=== PATIENT | male | born 1955 ===

== ENCOUNTER 2022-05-08 12:33 | Inpatient (IN) ==
[~2022-05-08 12:33] MED LIST: EPINEPHrine SYR 0.1MG/ML 10 ml SYRINGE ONE
[2022-05-08] MEDS ORDERED: Albuterol 2.5mg/3 ml (0.083%) NEB.SOLN INH ONE ×2 (12:45→14:13)
[2022-05-08] MEDS ORDERED: methylPREDNISolone SOD SUCC 125 mg 2 ML VIAL IV ONE (12:50)
[2022-05-08] MEDS ORDERED: EPINEPHrine SYR 0.1MG/ML 10 ml SYRINGE ONE (13:06)
[2022-05-08 13:08] LABS: Hematocrit 41 % (42-52); Hemoglobin 13.1 g/dL (14.0-18.0); Mean Corpuscular HGB Conc 32 g/dL (31-36); Mean Corpuscular Hemoglobin 30 pg (27-31); Mean Corpuscular Volume 96 fL (80-94); Mean Platelet Volume 6.8 fL (7.4-10.4); Platelet Count 209 10^3/uL (150-450); Red Blood Count 4.34 10^6 /uL (4.18-5.48); Red Cell Distribution Width 13 % (10-15); White Blood Count 7.8 10^3/uL (3.5-10.8)
[2022-05-08 13:18] LABS: INR 1.14 (0.88-1.18)
[2022-05-08] MEDS ORDERED: Iodixanol (CONTRAST) 320 MG/ML 100 ML SDV IV ONE (13:22)
[2022-05-08 13:55] LABS: Albumin 3.2 g/dL (3.2-5.2); Albumin/Globulin Ratio 1.5 (1-3); Calcium 7.8 mg/dL (8.6-10.3); Creatinine, Serum 1.64 mg/dL (0.67-1.17); Globulin 2.1 g/dL (2-4); Magnesium 2.4 mg/dL (1.9-2.7); Phosphorus 9.4 mg/dL (2.5-5.0); Potassium 4.7 mmol/L (3.5-5.0); Total Bilirubin 0.4 mg/dL (0.2-1.0); Total Protein 5.3 g/dL (6.4-8.9); eGFR CKD-EPI 45.8 (>60)
[2022-05-08] MEDS ORDERED: Albuterol/Ipratropium NEB.SOL (2.5/0.5 MG) 3 ML NEB.SOLN INH SCH (14:00)
[2022-05-08] MEDS ORDERED: Norepinephrine 16MCG/ML BAGD5W 4,000 MCG/250 ML BAG IV SCH (14:00)
[2022-05-08] MEDS ORDERED: Propofol 10 mg/ml 100 ML BTL 1,000 MG/100 ML BTL IV SCH (14:00)
[2022-05-08 14:04] LABS: TSH Ultra Thyroid Stim Horm 22.21 mcIU/mL (0.34-5.60)
[2022-05-08] MEDS ORDERED: Propofol 10 mg/ml 100 ML BTL 1,000 MG/100 ML BTL ONE (14:05)
[2022-05-08 14:07] LABS: RBC Morphology Normal (Normal)
[2022-05-08 14:08] LABS: ABS Eosinophils 0.2 10^3/ul (0-0.6); ABS Lymphocytes 3.3 10^3/ul (1.0-4.8); ABS Monocytes 0.5 10^3/ul (0-0.8); ABS Neutrophils 3.8 10^3/ul (1.5-7.7); Eosinophil % 2.1 %; Lymphocyte % 42.1 %; Nucleated Red Blood Cells % 0.1
[2022-05-08] MEDS: Propofol 10 mg/ml 100 ML BTL 1,000 MG/100 ML BTL IV SCH ×3 (14:10→20:17)
[2022-05-08 14:20] LABS: PCO2 Arterial 54 mmHg (35-45); PO2 Arterial 453 mmHg (80-100)
[2022-05-08] MEDS ORDERED: Lorazepam PYXIS KEY PRN ×3 (14:22→15:05)
[2022-05-08] MEDS ORDERED: LORazepam 2 mg VIAL 1 ml IV PUSH ONE ×2 (14:22→15:05)
[2022-05-08] MEDS ORDERED: Lorazepam PYXIS KEY ONE (14:22)
[2022-05-08] MEDS ORDERED: LORazepam 2 mg VIAL 1 ml ONE (14:23)
[2022-05-08] MEDS ORDERED: LORazepam 2 mg VIAL 1 ml IV PUSH STA (14:30)
[2022-05-08] MEDS: methylPREDNISolone SOD SUCC 40 mg/ml 1 ml VIAL IV SCH ×2 (14:45→21:32)
[2022-05-08] MEDS: Chlorhexidine MOUTHWASH 0.12% 15 ML UDC SWISH SPIT SCH ×3 (14:45→21:32)
[2022-05-08] MEDS: Pantoprazole VIAL 40 MG VIAL IV SCH (14:46)
[2022-05-08] MEDS: levETIRAcetam 1000MG IVPREMIX 1,000 MG/100 ML BAG IVPB ONE ×2 (14:49→15:07)
[2022-05-08 14:55] LABS: High Sensitivity Troponin 1 Hr 171 pg/mL (<20)
[2022-05-08] MEDS: Albuterol/Ipratropium NEB.SOL (2.5/0.5 MG) 3 ML NEB.SOLN INH SCH ×3 (14:59→23:06)
[2022-05-08] MEDS: Enoxaparin 40 MG/0.4 ML SYR SUBCUT SCH (15:22)
[2022-05-08 15:48] LABS: Urine Appearance Cloudy; Urine Bilirubin Negative (Negative); Urine Blood 2+ (Negative); Urine Color Straw; Urine Glucose 2+(150 mg/dL) (Negative); Urine Ketones Negative (Negative); Urine Nitrite Negative (Negative); Urine Protein 1+(30 mg/dL) (Negative); Urine Specific Gravity 1.015 (1.002-1.030); Urine Urobilinogen Negative (Negative)
[2022-05-08 15:59] LABS: Urine Bacteria Absent (Absent); Urine Red Blood Cell 2+(6-10/hpf) (Absent); Urine White Blood Cell Trace(0-5/hpf) (Absent)
[2022-05-08 16:06] LABS: Urine Benzodiazepine Screen None Detected (None Detect); Urine Cannabinoids Screen None Detected (None Detect); Urine Opiates Screen None Detected (None Detect)
[2022-05-08] MEDS ORDERED: Sulfur Hexaflouride MICROSPHR 25 MG VIAL ONE (16:34)
[2022-05-08 17:24] LABS: PCO2 Arterial 34 mmHg (35-45); PO2 Arterial 88 mmHg (80-100)
[2022-05-08] MEDS ORDERED: Meperidine 50 mg/ml SYRINGE 1 ml IV PRN (18:47)
[2022-05-08] MEDS ORDERED: NS 0.9% 500 ml BAG 500 ML IV ONE (22:00)
[2022-05-08 23:09] LABS: PCO2 Arterial 24 mmHg (35-45); PO2 Arterial 89 mmHg (80-100)
[2022-05-09 00:41] LABS: Calcium 7.9 mg/dL (8.6-10.3); Creatinine, Serum 1.65 mg/dL (0.67-1.17); Potassium 3.7 mmol/L (3.5-5.0); eGFR CKD-EPI 45.5 (>60)
[2022-05-09] MEDS ORDERED: NS 0.9% 500 ml BAG 500 ML IV ONE ×2 (01:01→15:33)
[2022-05-09] MEDS: Chlorhexidine MOUTHWASH 0.12% 15 ML UDC SWISH SPIT SCH ×6 (01:08→21:12)
[2022-05-09] MEDS: Albuterol/Ipratropium NEB.SOL (2.5/0.5 MG) 3 ML NEB.SOLN INH SCH ×6 (02:58→22:33)
[2022-05-09] MEDS: Propofol 10 mg/ml 100 ML BTL 1,000 MG/100 ML BTL IV SCH ×6 (03:04→22:59)
[2022-05-09 04:17] LABS: ABS Lymphocytes 0.4 10^3/ul (1.0-4.8); ABS Monocytes 0.4 10^3/ul (0-0.8); ABS Neutrophils 12.7 10^3/ul (1.5-7.7); Hematocrit 41 % (42-52); Hemoglobin 13.5 g/dL (14.0-18.0); Mean Corpuscular HGB Conc 33 g/dL (31-36); Mean Corpuscular Hemoglobin 30 pg (27-31); Mean Corpuscular Volume 90 fL (80-94); Mean Platelet Volume 6.7 fL (7.4-10.4); Platelet Count 215 10^3/uL (150-450); Red Blood Count 4.51 10^6 /uL (4.18-5.48); Red Cell Distribution Width 14 % (10-15); White Blood Count 13.5 10^3/uL (3.5-10.8)
[2022-05-09 04:43] LABS: Calcium 7.9 mg/dL (8.6-10.3); Creatinine, Serum 1.68 mg/dL (0.67-1.17); Potassium 3.8 mmol/L (3.5-5.0); eGFR CKD-EPI 44.5 (>60)
[2022-05-09] MEDS: levETIRAcetam 1000MG IVPREMIX 1,000 MG/100 ML BAG IVPB SCH ×2 (05:10→17:56)
[2022-05-09] MEDS: methylPREDNISolone SOD SUCC 40 mg/ml 1 ml VIAL IV SCH ×3 (05:14→21:27)
[2022-05-09 05:47] LABS: PCO2 Arterial 25 mmHg (35-45); PO2 Arterial 75 mmHg (80-100)
[2022-05-09 10:27] LABS: INR 1.09 (0.88-1.18)
[2022-05-09] MEDS ORDERED: Midazolam 50 MG PREMIX IV DRIP 50 ML IV SCH (13:15)
[2022-05-09] MEDS: Enoxaparin 40 MG/0.4 ML SYR SUBCUT SCH ×2 (13:17→14:43)
[2022-05-09] MEDS: Pantoprazole VIAL 40 MG VIAL IV SCH (13:17)
[2022-05-09] MEDS ORDERED: NS 0.9% 1000 ml BAG 1,000 ML IV SCH (15:45)
[2022-05-09 15:48] LABS: Free T4 0.64 ng/dL (0.61-1.12)
[2022-05-09 16:51] LABS: Calcium 7.8 mg/dL (8.6-10.3); Creatinine, Serum 1.6 mg/dL (0.67-1.17); Potassium 3.9 mmol/L (3.5-5.0); eGFR CKD-EPI 47.2 (>60)
[2022-05-09 18:24] LABS: Phosphorus 2.6 mg/dL (2.5-5.0)
[2022-05-09 19:50] LABS: Calcium 7.7 mg/dL (8.6-10.3); Creatinine, Serum 1.6 mg/dL (0.67-1.17); eGFR CKD-EPI 47.2 (>60)
[2022-05-10] MEDS: Chlorhexidine MOUTHWASH 0.12% 15 ML UDC SWISH SPIT SCH ×6 (01:16→22:24)
[2022-05-10] MEDS: Albuterol/Ipratropium NEB.SOL (2.5/0.5 MG) 3 ML NEB.SOLN INH SCH ×3 (02:05→19:05)
[2022-05-10] MEDS: Propofol 10 mg/ml 100 ML BTL 1,000 MG/100 ML BTL IV SCH ×4 (02:49→13:27)
[2022-05-10 04:49] LABS: ABS Lymphocytes 0.3 10^3/ul (1.0-4.8); ABS Monocytes 0.7 10^3/ul (0-0.8); Hematocrit 36 % (42-52); Hemoglobin 11.8 g/dL (14.0-18.0); Lymphocyte % 2.1 %; Mean Corpuscular HGB Conc 33 g/dL (31-36); Mean Corpuscular Hemoglobin 30 pg (27-31); Mean Corpuscular Volume 90 fL (80-94); Mean Platelet Volume 6.8 fL (7.4-10.4); Platelet Count 206 10^3/uL (150-450); Red Cell Distribution Width 14 % (10-15)
[2022-05-10 04:57] LABS: INR 1.1 (0.88-1.18)
[2022-05-10] MEDS: levETIRAcetam 1000MG IVPREMIX 1,000 MG/100 ML BAG IVPB SCH ×2 (05:50→17:11)
[2022-05-10] MEDS: methylPREDNISolone SOD SUCC 40 mg/ml 1 ml VIAL IV SCH ×2 (05:52→13:31)
[2022-05-10 06:15] LABS: PCO2 Arterial 34 mmHg (35-45); PO2 Arterial 91 mmHg (80-100)
[2022-05-10 06:54] LABS: Calcium 7.5 mg/dL (8.6-10.3); Creatinine, Serum 1.67 mg/dL (0.67-1.17); Potassium 4.6 mmol/L (3.5-5.0); eGFR CKD-EPI 44.9 (>60)
[2022-05-10 10:24] LABS: High Sensitivity Troponin 1 Hr 3188 pg/mL (<20)
[2022-05-10] MEDS: Pantoprazole VIAL 40 MG VIAL IV SCH (13:31)
[2022-05-10] MEDS: Enoxaparin 40 MG/0.4 ML SYR SUBCUT SCH (13:31)
[2022-05-10] MEDS ORDERED: methylPREDNISolone SOD SUCC 40 mg/ml 1 ml VIAL IV SCH (14:00)
[2022-05-10] MEDS: Artificial Tear OPHTH.OINT 3.5 GM BOTH EYES SCH ×2 (22:18)
[2022-05-11] MEDS ORDERED: methylPREDNISolone SOD SUCC 40 mg/ml 1 ml VIAL IV SCH (01:00)
[2022-05-11] MEDS: Artificial Tear OPHTH.OINT 3.5 GM BOTH EYES SCH ×6 (01:31→21:15)
[2022-05-11] MEDS: Chlorhexidine MOUTHWASH 0.12% 15 ML UDC SWISH SPIT SCH ×6 (01:32→21:22)
[2022-05-11] MEDS: levETIRAcetam 1000MG IVPREMIX 1,000 MG/100 ML BAG IVPB SCH ×2 (06:26→18:09)
[2022-05-11 06:35] LABS: PCO2 Arterial 37 mmHg (35-45); PO2 Arterial 91 mmHg (80-100)
[2022-05-11 06:37] LABS: ABS Lymphocytes 0.3 10^3/ul (1.0-4.8); ABS Monocytes 0.4 10^3/ul (0-0.8); ABS Neutrophils 11.2 10^3/ul (1.5-7.7); Hematocrit 36 % (42-52); Hemoglobin 11.9 g/dL (14.0-18.0); Lymphocyte % 2.7 %; Mean Corpuscular HGB Conc 33 g/dL (31-36); Mean Corpuscular Hemoglobin 30 pg (27-31); Mean Corpuscular Volume 91 fL (80-94); Mean Platelet Volume 7.3 fL (7.4-10.4); Platelet Count 179 10^3/uL (150-450); Red Cell Distribution Width 15 % (10-15); White Blood Count 11.9 10^3/uL (3.5-10.8)
[2022-05-11] MEDS: Albuterol/Ipratropium NEB.SOL (2.5/0.5 MG) 3 ML NEB.SOLN INH SCH ×2 (06:51→18:52)
[2022-05-11 07:47] LABS: Calcium 8.1 mg/dL (8.6-10.3); Creatinine, Serum 1.45 mg/dL (0.67-1.17); Magnesium 2.3 mg/dL (1.9-2.7); Phosphorus 3.4 mg/dL (2.5-5.0); eGFR CKD-EPI 53.1 (>60)
[2022-05-11 07:49] LABS: Potassium 5.2 mmol/L (3.5-5.0)
[2022-05-11] MEDS: Enoxaparin 40 MG/0.4 ML SYR SUBCUT SCH (14:21)
[2022-05-11] MEDS: methylPREDNISolone SOD SUCC 40 mg/ml 1 ml VIAL IV SCH (14:25)
[2022-05-11] MEDS: Pantoprazole VIAL 40 MG VIAL IV SCH (14:25)
[2022-05-11] MEDS: Acetaminophen IV 1 GM/100ML 1,000 MG/100 ML BAG IV PRN (15:33)
[2022-05-11] MEDS: hydrALAZINE 20 mg/ml 1 ML Vial IV IV SLOW PU PRN (15:33)
[2022-05-11] MEDS: Metoprolol Tartrate 5 mg VIAL 5 ml VIAL (1 mg/ml) IV SCH ×2 (16:11→20:12)
[2022-05-12] MEDS: Chlorhexidine MOUTHWASH 0.12% 15 ML UDC SWISH SPIT SCH ×6 (01:15→22:48)
[2022-05-12] MEDS: Metoprolol Tartrate 5 mg VIAL 5 ml VIAL (1 mg/ml) IV SCH ×2 (01:15→08:15)
[2022-05-12] MEDS: Artificial Tear OPHTH.OINT 3.5 GM BOTH EYES SCH ×6 (01:15→22:49)
[2022-05-12] MEDS: hydrALAZINE 20 mg/ml 1 ML Vial IV IV SLOW PU PRN ×2 (03:21→08:13)
[2022-05-12] MEDS ORDERED: Metoprolol Tartrate 5 mg VIAL 5 ml VIAL (1 mg/ml) IV ONE (04:43)
[2022-05-12 06:36] LABS: Hematocrit 38 % (42-52); Hemoglobin 12.5 g/dL (14.0-18.0); Mean Corpuscular HGB Conc 33 g/dL (31-36); Mean Corpuscular Hemoglobin 30 pg (27-31); Mean Corpuscular Volume 91 fL (80-94); Mean Platelet Volume 7.4 fL (7.4-10.4); Platelet Count 209 10^3/uL (150-450); Red Blood Count 4.19 10^6 /uL (4.18-5.48); Red Cell Distribution Width 14 % (10-15); White Blood Count 15.7 10^3/uL (3.5-10.8)
[2022-05-12] MEDS: levETIRAcetam 1000MG IVPREMIX 1,000 MG/100 ML BAG IVPB SCH ×2 (06:55→18:09)
[2022-05-12 07:25] LABS: Albumin 3.1 g/dL (3.2-5.2); Albumin/Globulin Ratio 1.1 (1-3); Calcium 8.7 mg/dL (8.6-10.3); Creatinine, Serum 1.11 mg/dL (0.67-1.17); Globulin 2.7 g/dL (2-4); Magnesium 2.4 mg/dL (1.9-2.7); Phosphorus 3.1 mg/dL (2.5-5.0); Total Bilirubin 0.6 mg/dL (0.2-1.0); Total Protein 5.8 g/dL (6.4-8.9); eGFR CKD-EPI 73.2 (>60)
[2022-05-12 07:35] LABS: Potassium 5.1 mmol/L (3.5-5.0)
[2022-05-12 08:03] LABS: ABS Lymphocytes 0.7 10^3/ul (1.0-4.8); ABS Monocytes 0.5 10^3/ul (0-0.8); ABS Neutrophils 14.5 10^3/ul (1.5-7.7); Lymphocyte % 4.2 %
[2022-05-12] MEDS: fentaNYL 100 mcg/2 ml 50 MCG/ML VIAL IV SLOW PU PRN ×3 (08:09→22:48)
[2022-05-12] MEDS: methylPREDNISolone SOD SUCC 40 mg/ml 1 ml VIAL IV SCH (08:11)
[2022-05-12] MEDS: Albuterol/Ipratropium NEB.SOL (2.5/0.5 MG) 3 ML NEB.SOLN INH SCH ×2 (08:19→20:40)
[2022-05-12] MEDS ORDERED: Docusate LIQ 100 MG/10 ML UDC PO PRN (10:36)
[2022-05-12] MEDS ORDERED: Senna TAB 8.6 mg TAB PO PRN (10:36)
[2022-05-12 12:07] LABS: PCO2 Arterial 36 mmHg (35-45); PO2 Arterial 67 mmHg (80-100)
[2022-05-12] MEDS ORDERED: Piperacillin/Tazobac ADVAN 3.375 GM in NS 0.9% 100 ml BAG 100 ML IV ONE (14:14)
[2022-05-12] MEDS: Enoxaparin 40 MG/0.4 ML SYR SUBCUT SCH (14:23)
[2022-05-12] MEDS: Metoprolol Tartrate 5 mg VIAL 5 ml VIAL (1 mg/ml) IV PRN (14:24)
[2022-05-12] MEDS: Pantoprazole VIAL 40 MG VIAL IV SCH (14:24)
[2022-05-12] MEDS ORDERED: Zosyn per Pharmacy NOTE FOLLOW UP SCH (15:00)
[2022-05-12] MEDS ORDERED: NS 0.9% 500 ml BAG 500 ML IV ONE (15:37)
[2022-05-12] MEDS ORDERED: Dexmedetomidine 1,000 MCG in NS 0.9% 250 ml 240 ML IV SCH (17:00)
[2022-05-12] MEDS: Senna TAB 8.6 mg TAB PO SCH (17:49)
[2022-05-12] MEDS: dilTIAZem 30 MG TAB PO SCH ×2 (18:32→22:49)
[2022-05-12] MEDS: Docusate LIQ 100 MG/10 ML UDC PO SCH (19:25)
[2022-05-12] MEDS: ZOSYN 3.375 GM Q8H per EXTENDED INFUSION IV SCH (20:57)
[2022-05-13] MEDS: Chlorhexidine MOUTHWASH 0.12% 15 ML UDC SWISH SPIT SCH ×5 (02:56→17:47)
[2022-05-13] MEDS: Artificial Tear OPHTH.OINT 3.5 GM BOTH EYES SCH ×5 (02:56→17:47)
[2022-05-13] MEDS: ZOSYN 3.375 GM Q8H per EXTENDED INFUSION IV SCH ×3 (04:25→20:15)
[2022-05-13 04:30] LABS: Hematocrit 39 % (42-52); Hemoglobin 12.5 g/dL (14.0-18.0); Mean Corpuscular HGB Conc 32 g/dL (31-36); Mean Corpuscular Hemoglobin 30 pg (27-31); Mean Corpuscular Volume 92 fL (80-94); Mean Platelet Volume 7.5 fL (7.4-10.4); Platelet Count 205 10^3/uL (150-450); Red Blood Count 4.24 10^6 /uL (4.18-5.48); Red Cell Distribution Width 15 % (10-15); White Blood Count 14.5 10^3/uL (3.5-10.8)
[2022-05-13] MEDS ORDERED: Dextrose 50% Syringe 50 ml 25 GM/50 ML SYRINGE IV PUSH PRN (04:31)
[2022-05-13 04:38] LABS: ABS Lymphocytes 0.6 10^3/ul (1.0-4.8); ABS Neutrophils 13.9 10^3/ul (1.5-7.7); Eosinophil % 0.1 %; Lymphocyte % 3.9 %; Nucleated Red Blood Cells % 0.1
[2022-05-13 05:09] LABS: Calcium 8.4 mg/dL (8.6-10.3); Creatinine, Serum 1.47 mg/dL (0.67-1.17); Magnesium 2.4 mg/dL (1.9-2.7); Potassium 5.5 mmol/L (3.5-5.0); eGFR CKD-EPI 52.3 (>60)
[2022-05-13] MEDS: dilTIAZem 30 MG TAB PO SCH ×3 (05:34→17:47)
[2022-05-13] MEDS ORDERED: NS 0.9% 500 ml BAG 500 ML IV ONE (05:54)
[2022-05-13] MEDS: levETIRAcetam 1000MG IVPREMIX 1,000 MG/100 ML BAG IVPB SCH ×2 (05:57→17:47)
[2022-05-13] MEDS ORDERED: Albuterol/Ipratropium NEB.SOL (2.5/0.5 MG) 3 ML NEB.SOLN INH PRN (06:39)
[2022-05-13 07:38] LABS: PCO2 Arterial 50 mmHg (35-45); PO2 Arterial 125 mmHg (80-100)
[2022-05-13] MEDS: Senna TAB 8.6 mg TAB PO SCH (08:29)
[2022-05-13] MEDS: Docusate LIQ 100 MG/10 ML UDC PO SCH ×2 (08:29→20:14)
[2022-05-13] MEDS: methylPREDNISolone SOD SUCC 40 mg/ml 1 ml VIAL IV SCH (08:29)
[2022-05-13] MEDS: hydrALAZINE 20 mg/ml 1 ML Vial IV IV SLOW PU PRN (10:43)
[2022-05-13] MEDS ORDERED: NS 0.9% 1000 ml BAG 1,000 ML IV SCH (10:45)
[2022-05-13] MEDS ORDERED: Midazolam 2 mg/2 ml VIAL 1 mg/ml 2 ml VIAL (2 mg) IV SLOW PU ONE (12:29)
[2022-05-13] MEDS ORDERED: Midazolam 2 mg/2 ml VIAL 1 mg/ml 2 ml VIAL (2 mg) ONE (12:29)
[2022-05-13] MEDS: Propofol 10 mg/ml 100 ML BTL 1,000 MG/100 ML BTL IV SCH (12:38)
[2022-05-13] MEDS: Enoxaparin 40 MG/0.4 ML SYR SUBCUT SCH (13:42)
[2022-05-13] MEDS: Pantoprazole VIAL 40 MG VIAL IV SCH (13:42)
[2022-05-13] MEDS ORDERED: Midazolam 2 mg/2 ml VIAL 1 mg/ml 2 ml VIAL (2 mg) IV SLOW PU PRN (17:26)
[2022-05-13] MEDS ORDERED: Scopolamine 1 mg/72hr PATCH TRANSDERM SCH (20:00)
[2022-05-14] MEDS: Artificial Tear OPHTH.OINT 3.5 GM BOTH EYES SCH ×7 (01:57→20:08)
[2022-05-14] MEDS: Chlorhexidine MOUTHWASH 0.12% 15 ML UDC SWISH SPIT SCH ×7 (01:57→20:08)
[2022-05-14] MEDS: dilTIAZem 30 MG TAB PO SCH ×5 (03:19→23:26)
[2022-05-14] MEDS: Propofol 10 mg/ml 100 ML BTL 1,000 MG/100 ML BTL IV SCH ×2 (03:33→22:01)
[2022-05-14] MEDS: ZOSYN 3.375 GM Q8H per EXTENDED INFUSION IV SCH ×3 (03:55→20:11)
[2022-05-14] MEDS: LORazepam 2 mg VIAL 1 ml IV PUSH PRN ×2 (03:55→19:34)
[2022-05-14 04:22] LABS: Hematocrit 38 % (42-52); Hemoglobin 12.1 g/dL (14.0-18.0); Mean Corpuscular HGB Conc 32 g/dL (31-36); Mean Corpuscular Hemoglobin 29 pg (27-31); Mean Corpuscular Volume 91 fL (80-94); Mean Platelet Volume 7.2 fL (7.4-10.4); PCO2 Arterial 59 mmHg (35-45); PO2 Arterial 104 mmHg (80-100); Platelet Count 213 10^3/uL (150-450); Red Blood Count 4.12 10^6 /uL (4.18-5.48); Red Cell Distribution Width 15 % (10-15)
[2022-05-14 04:59] LABS: Calcium 8.6 mg/dL (8.6-10.3); Creatinine, Serum 1.43 mg/dL (0.67-1.17); Magnesium 2.6 mg/dL (1.9-2.7)
[2022-05-14 05:01] LABS: Potassium 5.4 mmol/L (3.5-5.0)
[2022-05-14 06:36] LABS: ABS Lymphocytes 0.7 10^3/ul (1.0-4.8); ABS Monocytes 0.6 10^3/ul (0-0.8); ABS Neutrophils 15.8 10^3/ul (1.5-7.7); Lymphocyte % 3.9 %; Nucleated Red Blood Cells % 0.1
[2022-05-14 06:41] LABS: RBC Morphology Normal (Normal)
[2022-05-14] MEDS: levETIRAcetam 1000MG IVPREMIX 1,000 MG/100 ML BAG IVPB SCH ×2 (06:43→18:09)
[2022-05-14 06:46] LABS: Toxic Granulation 2+
[2022-05-14] MEDS: methylPREDNISolone SOD SUCC 40 mg/ml 1 ml VIAL IV SCH (09:22)
[2022-05-14] MEDS: Docusate LIQ 100 MG/10 ML UDC PO SCH ×2 (09:22→20:11)
[2022-05-14] MEDS: Senna TAB 8.6 mg TAB PO SCH (09:23)
[2022-05-14] MEDS ORDERED: Prochlorperazine 5 mg/ml 2 ml VIAL (10 mg) IV ONE (09:36)
[2022-05-14] MEDS: Pantoprazole VIAL 40 MG VIAL IV SCH (12:34)
[2022-05-14] MEDS: Enoxaparin 40 MG/0.4 ML SYR SUBCUT SCH (15:12)
[2022-05-14] MEDS: hydrALAZINE 20 mg/ml 1 ML Vial IV IV SLOW PU PRN (15:12)
[2022-05-14] MEDS: fentaNYL 100 mcg/2 ml 50 MCG/ML VIAL IV SLOW PU PRN (20:02)
[2022-05-14] MEDS ORDERED: Midazolam 2 mg/2 ml VIAL 1 mg/ml 2 ml VIAL (2 mg) IV SLOW PU PRN (20:02)
[2022-05-14] MEDS: Metoprolol Tartrate 5 mg VIAL 5 ml VIAL (1 mg/ml) IV PRN (20:07)
[2022-05-15] MEDS: Artificial Tear OPHTH.OINT 3.5 GM BOTH EYES SCH ×6 (00:16→20:26)
[2022-05-15] MEDS: Chlorhexidine MOUTHWASH 0.12% 15 ML UDC SWISH SPIT SCH ×6 (00:16→20:26)
[2022-05-15] MEDS: ZOSYN 3.375 GM Q8H per EXTENDED INFUSION IV SCH ×3 (03:52→20:26)
[2022-05-15 04:07] LABS: PCO2 Arterial 66 mmHg (35-45); PO2 Arterial 170 mmHg (80-100)
[2022-05-15 04:08] LABS: Hematocrit 39 % (42-52); Hemoglobin 12.2 g/dL (14.0-18.0); Mean Corpuscular HGB Conc 32 g/dL (31-36); Mean Corpuscular Hemoglobin 29 pg (27-31); Mean Corpuscular Volume 92 fL (80-94); Mean Platelet Volume 7.4 fL (7.4-10.4); Platelet Count 235 10^3/uL (150-450); Red Blood Count 4.18 10^6 /uL (4.18-5.48); Red Cell Distribution Width 15 % (10-15)
[2022-05-15 04:28] LABS: ABS Lymphocytes 0.8 10^3/ul (1.0-4.8); ABS Monocytes 0.8 10^3/ul (0-0.8); ABS Neutrophils 20.4 10^3/ul (1.5-7.7); Lymphocyte % 3.6 %; Nucleated Red Blood Cells % 0.1
[2022-05-15 04:41] LABS: Calcium 8.4 mg/dL (8.6-10.3); Creatinine, Serum 1.47 mg/dL (0.67-1.17); Magnesium 2.5 mg/dL (1.9-2.7); eGFR CKD-EPI 52.3 (>60)
[2022-05-15 04:42] LABS: Potassium 5.2 mmol/L (3.5-5.0)
[2022-05-15] MEDS: dilTIAZem 30 MG TAB PO SCH ×3 (04:57→18:32)
[2022-05-15] MEDS: levETIRAcetam 1000MG IVPREMIX 1,000 MG/100 ML BAG IVPB SCH ×2 (04:57→18:33)
[2022-05-15] MEDS: Propofol 10 mg/ml 100 ML BTL 1,000 MG/100 ML BTL IV SCH ×3 (05:02→20:24)
[2022-05-15] MEDS: Metoprolol Tartrate 5 mg VIAL 5 ml VIAL (1 mg/ml) IV PRN ×2 (06:31→15:10)
[2022-05-15] MEDS: Docusate LIQ 100 MG/10 ML UDC PO SCH ×2 (09:30→20:26)
[2022-05-15] MEDS: Senna TAB 8.6 mg TAB PO SCH (09:30)
[2022-05-15] MEDS: methylPREDNISolone SOD SUCC 40 mg/ml 1 ml VIAL IV SCH (09:30)
[2022-05-15] MEDS: Enoxaparin 40 MG/0.4 ML SYR SUBCUT SCH (14:36)
[2022-05-15] MEDS: Pantoprazole VIAL 40 MG VIAL IV SCH (14:37)
[2022-05-16] MEDS: dilTIAZem 30 MG TAB PO SCH ×3 (00:15→10:08)
[2022-05-16] MEDS: Chlorhexidine MOUTHWASH 0.12% 15 ML UDC SWISH SPIT SCH ×3 (00:15→10:08)
[2022-05-16] MEDS: Artificial Tear OPHTH.OINT 3.5 GM BOTH EYES SCH ×3 (00:15→09:14)
[2022-05-16] MEDS: Propofol 10 mg/ml 100 ML BTL 1,000 MG/100 ML BTL IV SCH (03:17)
[2022-05-16] MEDS: ZOSYN 3.375 GM Q8H per EXTENDED INFUSION IV SCH ×2 (03:58→10:08)
[2022-05-16 04:14] LABS: Hematocrit 36 % (42-52); Hemoglobin 11.7 g/dL (14.0-18.0); Mean Corpuscular HGB Conc 32 g/dL (31-36); Mean Corpuscular Hemoglobin 30 pg (27-31); Mean Corpuscular Volume 93 fL (80-94); Mean Platelet Volume 7.3 fL (7.4-10.4); Platelet Count 234 10^3/uL (150-450); Red Blood Count 3.89 10^6 /uL (4.18-5.48); Red Cell Distribution Width 16 % (10-15); White Blood Count 15.8 10^3/uL (3.5-10.8)
[2022-05-16 04:25] LABS: ABS Lymphocytes 0.5 10^3/ul (1.0-4.8); ABS Monocytes 0.6 10^3/ul (0-0.8); ABS Neutrophils 14.7 10^3/ul (1.5-7.7); Lymphocyte % 2.9 %
[2022-05-16 04:51] LABS: Albumin 2.5 g/dL (3.2-5.2); Calcium 8.2 mg/dL (8.6-10.3); Creatinine, Serum 2.32 mg/dL (0.67-1.17); Globulin 2.6 g/dL (2-4); Magnesium 2.9 mg/dL (1.9-2.7); Total Bilirubin 0.5 mg/dL (0.2-1.0); Total Protein 5.1 g/dL (6.4-8.9); eGFR CKD-EPI 30.2 (>60)
[2022-05-16 05:02] LABS: Potassium 5.7 mmol/L (3.5-5.0)
[2022-05-16] MEDS ORDERED: SODIUM ZIRCONIUM CYCLOSILICATE 10 GM PACKET PO ONE (05:46)
[2022-05-16] MEDS: levETIRAcetam 1000MG IVPREMIX 1,000 MG/100 ML BAG IVPB SCH (05:50)
[2022-05-16] MEDS: Metoprolol Tartrate 5 mg VIAL 5 ml VIAL (1 mg/ml) IV PRN (07:08)
[2022-05-16] MEDS: Docusate LIQ 100 MG/10 ML UDC PO SCH (08:58)
[2022-05-16] MEDS: Senna TAB 8.6 mg TAB PO SCH (08:58)
[2022-05-16] MEDS: methylPREDNISolone SOD SUCC 40 mg/ml 1 ml VIAL IV SCH (08:58)
[2022-05-16] MEDS ORDERED: Morphine PCA ADULT 5 MG/ML 30 ML PCA SCH ×2 (09:30→13:27)
[2022-05-16] MEDS: hydrALAZINE 20 mg/ml 1 ML Vial IV IV SLOW PU PRN (10:21)
[2022-05-16] MEDS ORDERED: Acetaminophen IV 1 GM/100ML 1,000 MG/100 ML BAG IV ONE (10:59)
[2022-05-16] MEDS: Acetaminophen IV 1 GM/100ML 1,000 MG/100 ML BAG IV PRN (11:00)
[2022-05-16] MEDS ORDERED: Morphine 10 MG/ML VIAL (1 ml) ONE (12:08)
[2022-05-16] MEDS ORDERED: LORazepam 2 mg VIAL 1 ml ONE (12:08)
[2022-05-16] MEDS ORDERED: Lorazepam PYXIS KEY ONE (12:08)
[2022-05-16 12:46] VITALS: BP 121/71
[2022-05-16] MEDS ORDERED: Midazolam 5 mg/5 ml VIAL 1 mg/ml 5 ml VIAL (5 mg) IV SLOW PU SCH (14:00)
[2022-05-16] MEDS ORDERED: Midazolam 2 mg/2 ml VIAL 1 mg/ml 2 ml VIAL (2 mg) IV SLOW PU SCH (14:00)
== END 2022-05-16 14:42 | disposition expired | DRG 207 ==
LOC: ED 12:33 → EDHOLD 12:59 → ICU 13:40
PROVIDERS: ADMIT Internal Medicine Critical Care Medicine; ATTEND Internal Medicine Critical Care Medicine